=== PATIENT | male | born 1980 | race Caucasian/White ===

== ENCOUNTER 2016-08-16 22:46 | Emergency (ER) | payer MEDICARE | END 2016-08-17 01:00 | disposition left against medical advice (07) | LOC: ER1 22:46 | DX: Z53.21 Procedure and treatment not carried out due to patient leaving prior to being seen by health care provider (principal) ==

== ENCOUNTER 2016-08-17 19:05 | Emergency (ER) | payer MEDICARE | END 2016-08-17 19:55 | disposition home or self-care (01) | LOC: ER1 19:05 | DX: S70.362A Insect bite (nonvenomous), left thigh, initial encounter (principal); F17.210 Nicotine dependence, cigarettes, uncomplicated; W57.XXXA Bitten or stung by nonvenomous insect and other nonvenomous arthropods, initial encounter | CPT/HCPCS: 99281 ==

== ENCOUNTER → 2020-11-15 | Outpatient (CLI) | payer OTHER ==
[~2020-11-15] MED LIST: MORPHINE SULFAT15 M1 PO
== END ==
LOC: KOH-I 09:29
DX: M25.532 Pain in left wrist (principal); W19.XXXA Unspecified fall, initial encounter
CPT/HCPCS: 73110

== ENCOUNTER → 2021-03-04 | Outpatient (CLI) | payer OTHER | LOC: CT 12:09 | DX: R10.11 Right upper quadrant pain (principal); R16.0 Hepatomegaly, not elsewhere classified; R17 Unspecified jaundice; R11.2 Nausea with vomiting, unspecified; B19.10 Unspecified viral hepatitis B without hepatic coma; F17.210 Nicotine dependence, cigarettes, uncomplicated; I48.91 Unspecified atrial fibrillation; K82.8 Other specified diseases of gallbladder | CPT/HCPCS: Q9967 ==

== ENCOUNTER → 2021-03-11 | Outpatient (CLI) | payer OTHER | LOC: KOH-I 12:18 | DX: M79.641 Pain in right hand (principal); S67.91XA Crushing injury of unspecified part(s) of right wrist, hand and fingers, initial encounter | CPT/HCPCS: 73120 ==

== ENCOUNTER → 2021-03-19 | Outpatient (CLI) | payer OTHER ==
[2021-03-19 09:47] LABS: HEMOGLOBIN 16.7 gm/dl (14.0-17.5); RED BLOOD COUNT 5.39 M/UL (4.20-5.50); WHITE BLOOD COUNT 8.4 K/UL (4.5-11.0)
[2021-03-19 10:26] LABS: BUN/CREATININE RATIO 15 (0-10)
== END ==
LOC: LAB 09:26
PROVIDERS: Nurse Practitioner Psychiatric/Mental Health
DX: R94.5 Abnormal results of liver function studies (principal); K72.00 Acute and subacute hepatic failure without coma; B18.1 Chronic viral hepatitis B without delta-agent
CPT/HCPCS: 36415; 80053; 82248; 85025; 85610